=== PATIENT | male | born 1955 | race Caucasian/White ===

== ENCOUNTER 2019-06-23 10:24 | Inpatient (IN) ==
[2019-06-23] MEDS ORDERED: LACTATED RINGERS 1,000 ML IV ONE (11:12)
[2019-06-23] MEDS ORDERED: TISSUE ADHESIVE 1 EACH APPLICATOR TOP ONE (11:13)
[2019-06-23] MEDS ORDERED: BUPIVACAINE MPF 0.25% /EPI 30 ML VIAL ONE (11:13)
[2019-06-23] MEDS ORDERED: LIDOCAINE 1% 20 ML VIAL ONE (11:13)
[2019-06-23 11:30] LABS: Basophils % 0.3 % (0.0-0.8); Hematocrit 50.8 VOL% (42.0-52.0); Hemoglobin 16.7 GM/DL (14.0-18.0); Immature Granulocytes % 0.5 %; Immature Granulocytes Absolute 0.07 #; Lymphocytes # 1.3 10*3/uL (1.4-4.0); Lymphocytes % 9.2 % (21.2-54.2); Mean Corpuscular HGB Conc 32.9 GM/DL (32-36); Mean Corpuscular Volume 94.4 FL (87-102); Mean Platelet Volume 9.3 FL (9.6-12.0); Monocytes % 3.2 % (1.7-12.7); Neutrophils % 86.8 % (38.7-73.9); Platelet Count 338 T/CUMM (130-400); Red Blood Count 5.38 MC/CUMM (3.8-5.5); Red Cell Distribution Width 13.5 % (9.3-17.3); White Blood Count 13.7 T/CUMM (4-12)
[2019-06-23 11:45] LABS: Alanine Aminotransferase 24 U/L (16-61); Albumin 4.4 G/DL (3.4-5.0); Alkaline Phosphatase 68 U/L (45-117); Aspartate Amino Transferase 18 U/L (0-37); Blood Urea Nitrogen 19 MG/DL (7-18); Calcium 9.7 MG/DL (8.5-10.1); Glucose 125 MG/DL (74-106); Osmolality,Calculated 279.5 MOS/KG (273-304); Total Protein 8.8 G/DL (6.4-8.3)
[2019-06-23] MEDS ORDERED: ONDANSETRON 4 MG/2 ML VIAL IV PRN (12:27)
[2019-06-23] MEDS ORDERED: MEPERIDINE 25 MG/1 ML VIAL IV PRN (12:27)
[2019-06-23] MEDS ORDERED: PROMETHAZINE INJ 25 MG in SODIUM CHLORIDE 0.9% 50 ML IV PRN (12:27)
[2019-06-23] MEDS: DEXTROSE 5% LACTATED RINGERS 1,000 ML IV SCH ×2 (13:10→20:52)
[2019-06-23 13:29] LABS: Hematocrit 46.1 VOL% (42.0-52.0)
[2019-06-23 13:30] LABS: Hemoglobin 14.7 GM/DL (14.0-18.0)
[2019-06-23] MEDS: MORPHINE 4 MG/1 ML VIAL IV PRN ×3 (14:08→22:28)
[2019-06-23] MEDS: cefOXitin 2,000 MG in SYRINGE 1 EACH IV SCH ×2 (14:12→20:53)
[2019-06-23] MEDS ORDERED: ROCURONIUM 100 MG/10 ML VIAL IV ONE (14:18)
[2019-06-23] MEDS ORDERED: SEVOFLURANE 1 UNIT/15 MINUTE INH ONE (14:18)
[2019-06-23] MEDS ORDERED: GLYCOPYRROLATE 0.4 MG/2 ML VIAL ONE (14:18)
[2019-06-23] MEDS ORDERED: ONDANSETRON 4 MG/2 ML VIAL ONE (14:18)
[2019-06-23] MEDS ORDERED: MIDAZOLAM 2 MG/2 ML VIAL ONE (14:18)
[2019-06-23] MEDS ORDERED: fentaNYL 100 MCG/2 ML VIAL ONE (14:18)
[2019-06-23] MEDS ORDERED: NEOSTIGMINE 10 MG/10 ML VIAL ONE (14:18)
[2019-06-23] MEDS ORDERED: PROPOFOL 200 MG/20 ML VIAL IV ONE (14:18)
[2019-06-23] MEDS ORDERED: PHENYLEPHRINE 1 MG/10 ML SYRINGE IV ONE (14:19)
[2019-06-23 21:55] LABS: Hematocrit 37.8 VOL% (42.0-52.0); Hemoglobin 12.7 GM/DL (14.0-18.0)
[2019-06-24] MEDS: DEXTROSE 5% LACTATED RINGERS 1,000 ML IV SCH ×3 (04:35→20:27)
[2019-06-24] MEDS: cefOXitin 2,000 MG in SYRINGE 1 EACH IV SCH ×3 (04:47→20:30)
[2019-06-24] MEDS: MORPHINE 4 MG/1 ML VIAL IV PRN ×4 (04:53→20:27)
[2019-06-24] MEDS: ONDANSETRON 4 MG/2 ML VIAL IV PRN (05:01)
[2019-06-24 05:34] LABS: Basophils % 0.2 % (0.0-0.8); Eosinophils % 0.2 % (0.00-10.9); Hematocrit 39.8 VOL% (42.0-52.0); Hemoglobin 12.9 GM/DL (14.0-18.0); Immature Granulocytes % 0.6 %; Immature Granulocytes Absolute 0.08 #; Lymphocytes # 1.9 10*3/uL (1.4-4.0); Lymphocytes % 14.7 % (21.2-54.2); Mean Corpuscular HGB Conc 32.4 GM/DL (32-36); Mean Corpuscular Volume 94.8 FL (87-102); Mean Platelet Volume 9.6 FL (9.6-12.0); Monocytes % 3.3 % (1.7-12.7); Platelet Count 272 T/CUMM (130-400)
[2019-06-24 05:43] LABS: Calcium 8.5 MG/DL (8.5-10.1); Osmolality,Calculated 286.1 MOS/KG (273-304)
[2019-06-24 06:00] LABS: Band Neutrophils 9 % (0-10); Lymphocytes 14 % (20-55); Platelet Estimate Normal; Segmented Neutrophils 74 % (50-85); Total Cells Counted 100
[2019-06-24] MEDS ORDERED: CYCLOBENZAPRINE 10 MG TABLET PO PRN (08:25)
[2019-06-24] MEDS: SIMVASTATIN 20 MG TABLET PO SCH (09:10)
[2019-06-24] MEDS: CHOLECALCIFEROL 1,000 UNIT TABLET PO SCH (09:10)
[2019-06-24] MEDS: EZETIMIBE 10 MG TABLET PO SCH (09:10)
[2019-06-24] MEDS: MULTIVITAMIN (CENTRUM) TABLET PO SCH (09:10)
[2019-06-24] MEDS: ACYCLOVIR 200 MG CAPSULE PO SCH (09:10)
[2019-06-24] MEDS: PANTOPRAZOLE 40 MG TABLET PO SCH (09:11)
[2019-06-24] MEDS: ZALEPLON 5 MG CAPSULE PO SCH (20:27)
[2019-06-25] MEDS: DEXTROSE 5% LACTATED RINGERS 1,000 ML IV SCH ×2 (04:35→15:33)
[2019-06-25] MEDS: cefOXitin 2,000 MG in SYRINGE 1 EACH IV SCH ×2 (05:37→14:00)
[2019-06-25] MEDS: CHOLECALCIFEROL 1,000 UNIT TABLET PO SCH (09:25)
[2019-06-25] MEDS: MULTIVITAMIN (CENTRUM) TABLET PO SCH (09:26)
[2019-06-25] MEDS: EZETIMIBE 10 MG TABLET PO SCH (09:26)
[2019-06-25] MEDS: SIMVASTATIN 20 MG TABLET PO SCH (09:26)
[2019-06-25] MEDS: PANTOPRAZOLE 40 MG TABLET PO SCH (09:26)
[2019-06-25] MEDS: ACYCLOVIR 200 MG CAPSULE PO SCH (09:26)
[2019-06-25] MEDS: MORPHINE 4 MG/1 ML VIAL IV PRN ×3 (11:18→20:12)
[2019-06-25] MEDS: CIPROFLOXACIN INJ 400 MG in PREMIX 1 EACH IV SCH (17:46)
[2019-06-25] MEDS: ZALEPLON 5 MG CAPSULE PO SCH (20:12)
[2019-06-26] MEDS: DEXTROSE 5% LACTATED RINGERS 1,000 ML IV SCH ×4 (00:30→20:37)
[2019-06-26] MEDS: CIPROFLOXACIN INJ 400 MG in PREMIX 1 EACH IV SCH ×2 (04:57→16:12)
[2019-06-26 05:30] LABS: Basophils % 0.3 % (0.0-0.8); Eosinophils # 0.2 10*3/uL (0.0-0.87); Eosinophils % 1.3 % (0.00-10.9); Hematocrit 36.1 VOL% (42.0-52.0); Hemoglobin 11.9 GM/DL (14.0-18.0); Immature Granulocytes Absolute 0.11 #; Lymphocytes # 1.9 10*3/uL (1.4-4.0); Lymphocytes % 17.1 % (21.2-54.2); Mean Corpuscular Volume 94.5 FL (87-102); Mean Platelet Volume 9.6 FL (9.6-12.0); Monocytes % 6.7 % (1.7-12.7); Neutrophils % 73.6 % (38.7-73.9); Platelet Count 285 T/CUMM (130-400); Red Blood Count 3.82 MC/CUMM (3.8-5.5); White Blood Count 11.4 T/CUMM (4-12)
[2019-06-26] MEDS: CHOLECALCIFEROL 1,000 UNIT TABLET PO SCH (08:37)
[2019-06-26] MEDS: EZETIMIBE 10 MG TABLET PO SCH (08:37)
[2019-06-26] MEDS: SIMVASTATIN 20 MG TABLET PO SCH (08:37)
[2019-06-26] MEDS: MULTIVITAMIN (CENTRUM) TABLET PO SCH (08:37)
[2019-06-26] MEDS: ACYCLOVIR 200 MG CAPSULE PO SCH (08:37)
[2019-06-26] MEDS: PANTOPRAZOLE 40 MG TABLET PO SCH (08:37)
[2019-06-26] MEDS: MORPHINE 4 MG/1 ML VIAL IV PRN ×3 (10:52→20:42)
[2019-06-26] MEDS: ONDANSETRON 4 MG/2 ML VIAL IV PRN (18:39)
[2019-06-26] MEDS: ZALEPLON 5 MG CAPSULE PO SCH (20:41)
[2019-06-27] MEDS: MORPHINE 4 MG/1 ML VIAL IV PRN ×2 (00:44→06:05)
[2019-06-27] MEDS: CIPROFLOXACIN INJ 400 MG in PREMIX 1 EACH IV SCH (04:02)
[2019-06-27] MEDS: DEXTROSE 5% LACTATED RINGERS 1,000 ML IV SCH (05:50)
[2019-06-27 06:22] LABS: Basophils % 0.3 % (0.0-0.8); Eosinophils # 0.2 10*3/uL (0.0-0.87); Eosinophils % 2.6 % (0.00-10.9); Hemoglobin 11.6 GM/DL (14.0-18.0); Immature Granulocytes % 0.3 %; Immature Granulocytes Absolute 0.03 #; Lymphocytes # 1.6 10*3/uL (1.4-4.0); Lymphocytes % 17.9 % (21.2-54.2); Mean Corpuscular HGB Conc 34.1 GM/DL (32-36); Mean Corpuscular Volume 92.1 FL (87-102); Mean Platelet Volume 9.3 FL (9.6-12.0); Monocytes % 10.3 % (1.7-12.7); Neutrophils % 68.6 % (38.7-73.9); Platelet Count 315 T/CUMM (130-400); Red Blood Count 3.69 MC/CUMM (3.8-5.5); Red Cell Distribution Width 13.9 % (9.3-17.3); White Blood Count 8.8 T/CUMM (4-12)
[2019-06-27 06:37] LABS: Calcium 8.4 MG/DL (8.5-10.1); Osmolality,Calculated 282.1 MOS/KG (273-304)
[2019-06-27 08:11] VITALS: BP 134/77
[2019-06-27] MEDS: ACYCLOVIR 200 MG CAPSULE PO SCH (09:20)
[2019-06-27] MEDS: CHOLECALCIFEROL 1,000 UNIT TABLET PO SCH (09:20)
[2019-06-27] MEDS: SIMVASTATIN 20 MG TABLET PO SCH (09:20)
[2019-06-27] MEDS: MULTIVITAMIN (CENTRUM) TABLET PO SCH (09:20)
[2019-06-27] MEDS: PANTOPRAZOLE 40 MG TABLET PO SCH (09:20)
[2019-06-27] MEDS: EZETIMIBE 10 MG TABLET PO SCH (09:20)
== END 2019-06-27 11:20 | disposition home or self-care (01) | DRG 339 ==
LOC: N.ED 10:24 → N.3E 11:26
PROVIDERS: ADMIT Surgery; ATTEND Surgery